=== PATIENT | male | born 2000 | race Caucasian/White ===

== ENCOUNTER 2019-10-10 21:25 | Emergency (ER) | payer BC ==
[~2019-10-10] VITALS: Ht 188 cm; Wt 97.7 kg
[~2019-10-10 21:25] MED LIST: NO HOME MEDICATIONS
[2019-10-10 23:30] VITALS: TEMP 99
[2019-10-10 23:50] VITALS: BP 112/72; PULSE 88
== END 2019-10-10 23:45 | disposition home or self-care, planned readmission (81) ==
LOC: COL.ER 21:25
DX: T18.128A Food in esophagus causing other injury, initial encounter (principal); K20.0 Eosinophilic esophagitis
CPT/HCPCS: J0330; J1100; J1885; J2405; J2704; J3010; J7030